=== PATIENT | female | born 1955 | race Caucasian/White ===

== ENCOUNTER 2018-07-13 10:02 | Inpatient (IN) ==
[2018-07-13] MEDS ORDERED: TYLENOL PO PRN (10:49)
[2018-07-13 11:23] LABS: HEMATOCRIT 40.4 % (37.0-47.0); HEMOGLOBIN 13.7 g/dL (12.0-16.0); MCH 30.4 PG (27-31); MCHC 33.9 g/dL (33-37); MCV 89.8 FL (81-99); MPV 12.5 FL (7.4-10.4); RBC 4.5 XMIL (4.2-5.4); RDW 13.1 % (11.5-14.5); WBC 7.27 X1000 (4.8-10.8)
[2018-07-13] MEDS ORDERED: DILAUDID IV PRN (11:24)
--- NOTE | 2018-07-13 11:27 | Diag Imaging Result Doc PS360 ---
CHEST-2 VIEWS - 07/13/2018 INDICATION: r/o pna COMPARISON: 10/27/2013 FINDINGS: The lungs are normally expanded and clear. Heart size and mediastinal contours are normal. No pneumothorax or pleural effusion. IMPRESSION: Negative exam. Electronically signed by Jeremiah Brown 07/13/2018 11:25 AM
[2018-07-13 11:29] LABS: AGAP 10; ALB/GLOB RATIO 1.2; ALBUMIN 4.1 g/dL (3.5-5.0); ALKALINE PHOSPHATASE 103 U/L (32-104); AMYLASE 1462 U/L (20-200); BUN 16 mg/dL (8-22); CALCIUM 8.6 mg/dL (8.8-10.2); CHLORIDE 105 mmol/L (98-107); COSMO 279; CREATININE 0.8 mg/dL (0.5-0.9); ESTIMATED GFR > 60; GLUCOSE 109 mg/dL (70-104); GOT 112 U/L (10-30); GPT 115 U/L (10-36); POTASSIUM 3.7 mmol/L (3.5-5.1); SODIUM 139 mmol/L (136-145); TCO2 24 mmol/L (25-35); TOTAL BILIRUBIN 0.57 mg/dL (0.20-1.00); TOTAL PROTEIN 7.6 g/dL (6.3-8.3)
--- NOTE | 2018-07-13 11:29 | Diag Imaging Result Doc PS360 ---
ABDOMEN FLAT/UPRIGHT - 07/13/2018 INDICATION: abd pain COMPARISON: 03/28/2013 FINDINGS: There is a nonobstructive bowel gas pattern. No free air or abdominal calcifications. There are stable cholecystectomy clips. IMPRESSION: No acute disease. Electronically signed by Jeremiah Brown 07/13/2018 11:26 AM
[2018-07-13] MEDS: D5 1/2 NS 1,000 ML IV SCH ×2 (11:30→17:52)
[2018-07-13] MEDS ORDERED: SODIUM CHLORIDE 0.9% INJ SCH (11:30)
[2018-07-13] MEDS ORDERED: PROTONIX IV SCH (11:30)
[2018-07-13 11:46] LABS: LIPASE 2336 U/L (13-60)
[2018-07-13 11:53] LABS: URINE SOURCE CLEAN CATCH
[2018-07-13] MEDS: DILAUDID IV PRN ×4 (11:53→20:54)
[2018-07-13] MEDS: SODIUM CHLORIDE 0.9% INJ PRN (11:53)
[2018-07-13] MEDS: PHENERGAN IV PRN ×4 (11:53→23:54)
[2018-07-13 11:58] LABS: UR EPITHELIAL CELLS <10 /HPF (<10); URINE BACTERIA NEGATIVE /HPF; URINE RBC <10 /HPF (<10); URINE WBC <10 /HPF (<10)
--- NOTE | 2018-07-13 11:58 | EKG Report ---
Test Performed on : 07/13/2018 11:50:56 AM Test Reason : admit/eval rythm Blood Pressure : / mmHG Vent. Rate : 065 BPM Atrial Rate : 065 BPM P-R Int : 170 ms QRS Dur : 084 ms QT Int : 426 ms P-R-T Axes : 025 055 052 degrees QTc Int : 443 ms Normal sinus rhythm. Normal ECG No previous ECGs available Confirmed by Willian ARANDA, John Valencia ([id number]) on 07/18/2018 12:40:42 PM
[2018-07-13 11:59] LABS: BILIRUBIN URINE NEGATIVE (NEGATIVE); BLOOD URINE TRACE (NEGATIVE); COLOR YELLOW; GLUCOSE URINE NEGATIVE (NEGATIVE); KETONE URINE 20 mg/dL (NEGATIVE); LEUKOCYTES URINE NEGATIVE (NEGATIVE); NITRITE URINE NEGATIVE (NEGATIVE); PH URINE 5.5; PROTEIN URINE NEGATIVE (NEGATIVE); SP GRAVITY URINE 1.002; TURBIDITY URINE CLEAR (CLEAR); UROBILINOGEN URINE NORMAL (NORMAL)
[2018-07-13 12:11] LABS: MAGNESIUM 1.7 mg/dL (1.5-2.7); PHOSPHORUS 2.8 mg/dL (2.7-4.5)
[2018-07-13] MEDS: SODIUM CHLORIDE 0.9% INJ SCH (12:26)
[2018-07-13] MEDS: PEPCID IV SCH (12:26)
[2018-07-13 12:28] LABS: HEMOGLOBIN A1C 5.7 % (4.8-6.0)
[2018-07-13 12:32] LABS: FREE T4 1.28 ng/dL (0.93-1.70); TSH 0.6 uIUmL (0.27-4.20)
[2018-07-13 12:39] LABS: INR 0.97; PROTIME 13.7 Seconds (11.0-16.0)
[2018-07-13 12:40] LABS: PTT 28.2 Seconds (22.3-41.8)
[2018-07-13] MEDS: HUMULIN R SUBQ SCH ×2 (16:49→20:05)
[2018-07-13] MEDS: ZOFRAN IV PRN (17:46)
--- NOTE | 2018-07-13 18:06 | HISTORY AND PHYSICAL ---
This is a patient of Dr. Gt Nicholas. Followed by Dr. Bonilla. HISTORY OF PRESENT ILLNESS: Presented with severe epigastric pain. She has had a history of recurrent pancreatitis. This is a 63-year-old female with a history of recurrent pancreatitis, fatty liver disease, presented to the emergency room once again, sent over by Dr. Bonilla with severe epigastric pain that started yesterday evening, persistently nauseated. PAST MEDICAL HISTORY: Recurrent pancreatitis. Apparently, she has had workup before and in fact has had a stent placed for a couple months. PAST SURGICAL HISTORY: 1. Hysterectomy. 2. Cholecystectomy. 3. ERCP, sphincterotomy in November 2013. 4. Right knee surgery. FAMILY HISTORY: Noncontributory. No significant family history reported. SOCIAL HISTORY: The patient is . Nonsmoker. Denies any alcohol use. 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 HOME MEDICATIONS: I think were Protonix 40 mg a day. ALLERGIES: Morphine and cefprozil. REVIEW OF SYSTEMS: General: No weight gain or loss. No fever or chills. HEENT: Unremarkable. Respiratory: No increased work of breathing or dyspnea. Cardiovascular: No chest pain or tachy palpitation. GI and : Unremarkable except for recurrent epigastric pain and pancreatitis. Endocrinologic/Hematologic: No significant history. PHYSICAL EXAMINATION: VITAL SIGNS: Temperature 98.1 degrees, pulse 62, respirations 12, blood pressure 108/59. Weight 172 pounds. Height 5 feet 2 inches. HEENT: Pupils are equal and round. Oral and nasal mucosa unremarkable. No lesions. Conjunctivae pink. Sclerae clear. LUNGS: Clear in all lung wilkins. CARDIOVASCULAR: Regular rhythm and rate without murmur or S3. ABDOMEN: Tender in the epigastric area. No organomegaly appreciated. SKIN: Warm and dry. No pedal edema. NECK: Supple. No cervical adenopathy. LABORATORY DATA: White count 7,270, hematocrit 40, platelet count is 187,000. Sodium 139, potassium 3.7, chloride 105, BUN 16, creatinine 0.8, blood sugar 109. Hemoglobin A1c is 5.7. Phosphorus is 2.8. AST is 112, ALT is 115, alkaline phosphatase was 103, albumin 4.1. ProTime is 13.7, INR 0.97. Urinalysis unremarkable. Abdominal x-ray, no acute disease. Chest x-ray, negative exam. ASSESSMENT AND PLAN: Acute pancreatitis, recurrent pancreatitis in the face of underlying fatty liver. We are going to hold her NPO, give her some fluids, and give her some pain control. Dr. Bonilla is following. She is on Pepcid 20 mg IV q.12, getting Dilaudid 0.5 mg q.3 hours p.r.n. and I think she gets actually 1 mg q.3 hours p.r.n. if she needs it, Phenergan for nausea running, IV fluids with D5 half normal saline at 150 mL an hour. cc: Aroldo Alatorre MD
[2018-07-14] MEDS: PEPCID IV SCH ×2 (00:02→11:23)
[2018-07-14] MEDS: D5 1/2 NS 1,000 ML IV SCH ×4 (00:33→18:49)
[2018-07-14] MEDS: PHENERGAN IV PRN ×5 (03:37→20:55)
[2018-07-14] MEDS: DILAUDID IV PRN ×6 (03:41→20:55)
--- NOTE | 2018-07-14 04:36 | GASTROENTEROLOGY PROGRESS NOTE ---
DATE: 07/13/2018 SUBJECTIVE: The patient was seen in the office this morning with abdominal pain and nausea. She was very tender in the epigastric area. She has history of recurrent pancreatitis. I think she had pancreatitis and she was transferred to the hospital to be admitted. Since admission, she has had her labs done, which indeed showed elevated amylase and lipase at 1,462 and 2336, respectively. Her transaminases are elevated, also, AST was 112, and ALT was 115. Since admission, she has received pain medicine and has been getting hydration and she feels a little better. She denies any nausea, vomiting. She is on ice chips and sips now. OBJECTIVE: Vital signs: Temperature 98.1 degrees, pulse 62, breathing at 12, blood pressure 108/59. Abdomen: Remains tender in the epigastric area. IMPRESSION: Acute pancreatitis (recurrent). Etiology at this point not known. Had she not had her cholecystectomy she would be the right person to have gallstone pancreatitis, but she has had cholecystectomy and she has had ERCP and sphincterotomy also. As far as etiology of her pancreatitis, again, it is elusive. She was scheduled to see Dr. Recinos at [facility], but she has not been able to do that. PLAN: The plan would be to continue symptomatic treatment for pain, nausea, and continue to follow the labs and replenish electrolytes if it goes down, and keep her comfortable. Once she is stabilized, like she always does, in a day or 2 she can be discharged to be followed up at the office. She will need endoscopic ultrasound and follow up with Dr. Recinos for further evaluation and treatment. I have explained the findings and plan to the patient. She understands and agrees. cc: Clifton Bonilla MD
[2018-07-14] MEDS: BENADRYL IV PRN ×2 (05:12→11:24)
[2018-07-14] MEDS: ZOFRAN IV PRN (05:16)
[2018-07-14 07:51] LABS: BASO# 0.02 X1000 (0.0-0.2); BASO% 0.3 % (0.0-0.8); EOS# 0.08 X1000 (0.0-0.7); EOS% 1.1 % (0.0-10.0); HEMATOCRIT 38.1 % (37.0-47.0); HEMOGLOBIN 12.4 g/dL (12.0-16.0); LYMPH# 1.26 X1000 (1.2-3.4); LYMPH% 17.4 % (20.5-51.1); MCHC 32.5 g/dL (33-37); MCV 92.3 FL (81-99); MONO# 0.49 X1000 (0.11-0.59); MONO% 6.8 % (1.7-9.3); MPV 12.6 FL (7.4-10.4); NEUT% 74.4 % (42.2-75.2); PLT 186 X1000 (130-400); RBC 4.13 XMIL (4.2-5.4); RDW 13.1 % (11.5-14.5); WBC 7.25 X1000 (4.8-10.8)
[2018-07-14 07:55] LABS: INR 0.98; PROTIME 13.7 Seconds (11.0-16.0); PTT 29.7 Seconds (22.3-41.8)
[2018-07-14 08:24] LABS: AGAP 9; BUN 10 mg/dL (8-22); CHLORIDE 100 mmol/L (98-107); COSMO 269; CREATININE 0.7 mg/dL (0.5-0.9); ESTIMATED GFR > 60; GLUCOSE 137 mg/dL (70-104); POTASSIUM 3.6 mmol/L (3.5-5.1); SODIUM 134 mmol/L (136-145); TCO2 25 mmol/L (25-35)
[2018-07-14 08:25] LABS: ALB/GLOB RATIO 1.3; ALBUMIN 3.7 g/dL (3.5-5.0); ALKALINE PHOSPHATASE 102 U/L (32-104); CALCIUM 8.1 mg/dL (8.8-10.2); GOT 153 U/L (10-30); GPT 189 U/L (10-36); TOTAL BILIRUBIN 0.53 mg/dL (0.20-1.00); TOTAL PROTEIN 6.5 g/dL (6.3-8.3)
[2018-07-14] MEDS: SODIUM CHLORIDE 0.9% INJ PRN ×3 (08:46→16:54)
[2018-07-14] MEDS: HUMULIN R SUBQ SCH ×4 (08:55→21:01)
[2018-07-14 10:58] LABS: AMYLASE 1344 U/L (20-200)
[2018-07-14 11:08] LABS: LIPASE 1637 U/L (13-60)
[2018-07-14] MEDS: SODIUM CHLORIDE 0.9% INJ SCH (11:24)
--- NOTE | 2018-07-14 14:53 | PROGRESS NOTE ---
DATE: 07/14/2018 SUBJECTIVE: Ms. Pulido is maybe a little better, still in a good deal of pain, left upper quadrant and epigastric pain. No nausea at the present time. She is still n.p.o. OBJECTIVE: Vital Signs: Temperature 97.8 degrees, pulse 62, respirations 12, and blood pressure 129/66. Eyes: Pupils are equal and round. Lungs: Clear in all lung wilkins. Cardiovascular exam: Regular rhythm and rate without murmur or S3. Abdomen: Soft. Skin: Warm and dry. : Urine output 3600 mL. Blood sugar 111,133 and 155. ASSESSMENT AND PLAN: Acute pancreatitis. Recurrent pancreatitis in face of underlying fatty liver. Continue to hold her on nothing by mouth. Dr. Bonilla is following. Continue liquids and pain control. cc: Aroldo Alatorre MD
--- NOTE | 2018-07-14 17:09 | GASTROENTEROLOGY PROGRESS NOTE ---
DATE: 07/14/2018 SUBJECTIVE: Patient was drowsy. She has recently received pain medication. She states her abdominal pain has improved slightly. OBJECTIVE: Vital Signs: Temperature 97.5 degrees, pulse 62, blood pressure 129/66. General: Patient is drowsy in no acute distress. Abdomen: Soft, but tender with palpation. LABORATORY: Hematology 7.25 hemoglobin 12.4, hematocrit 38.1, MCV 92.3 platelet 186,000. Chemistry: Sodium 134, potassium 3.6, chloride 100, CO2 25, BUN 10, creatinine 0.7, glucose 137, total bilirubin 0.53. AST 153 ALT 189 alkaline phosphatase 102, amylase 1344, lipase 1637. ASSESSMENT AND PLAN: 1. Acute pancreatitis. 2. History of chronic pancreatitis. She has history of cholecystectomy. She has had endoscopic retrograde cholangiopancreatography and sphincterotomy. We had initially referred her at [facility] to Dr. Recinos but he is not accepting patients. We will refer the patient to Dr. Dunham in [place] for evaluation for possible endoscopic ultrasound and further evaluation due to chronic pancreatitis. Patient was also seen today by Dr. Bonilla. Dictated by ELDA Che for Clifton Bonilla MD cc: ELDA Zimmerman MD
[2018-07-15] MEDS: PHENERGAN IV PRN ×6 (00:21→22:08)
[2018-07-15] MEDS: DILAUDID IV PRN ×6 (00:21→22:08)
[2018-07-15] MEDS: PEPCID IV SCH ×2 (00:21→14:45)
[2018-07-15] MEDS: D5 1/2 NS 1,000 ML IV SCH ×4 (00:28→21:00)
[2018-07-15] MEDS: BENADRYL IV PRN ×2 (04:10→21:00)
[2018-07-15] MEDS: HUMULIN R SUBQ SCH ×4 (06:22→21:03)
[2018-07-15] MEDS: SODIUM CHLORIDE 0.9% INJ PRN ×3 (08:21→18:12)
--- NOTE | 2018-07-15 10:57 | PROGRESS NOTE ---
DATE: 07/15/2018 SUBJECTIVE: She maybe feels a little bit better, a little less pain. LABORATORY DATA: From this morning, amylase was 13,444, lipase 1637. So, we will check those again in the morning. Transaminases slightly elevated. AST 153, ALT was alk phos 189. I think we will try full liquids but she is still in pretty good pain. It is mainly right upper quadrant, epigastrium that is hurting. OBJECTIVE: Vital signs: Temperature 98.3 degrees, pulse 64, respirations 20, blood pressure 125/70. HEENT: Pupils are equal round. Lungs: Clear in all lung wilkins. Cardiovascular: Regular rhythm and rate without murmur or S3. Abdomen: Soft. Skin: Warm and dry. ASSESSMENT AND PLAN: I will advance her to full liquid. We will check liver functions and amylase and lipase again in the morning. cc: Aroldo Alatorre MD MTDD
[2018-07-15 14:28] LABS: AGAP 11; BUN 5 mg/dL (8-22); CALCIUM 8.6 mg/dL (8.8-10.2); CHLORIDE 104 mmol/L (98-107); COSMO 279; CREATININE 0.8 mg/dL (0.5-0.9); ESTIMATED GFR > 60; GLUCOSE 112 mg/dL (70-104); LIPASE 273 U/L (13-60); POTASSIUM 3.6 mmol/L (3.5-5.1); SODIUM 141 mmol/L (136-145); TCO2 26 mmol/L (25-35)
[2018-07-15] MEDS: SODIUM CHLORIDE 0.9% INJ SCH (14:45)
[2018-07-16] MEDS: D5 1/2 NS 1,000 ML IV SCH ×2 (03:45→10:43)
[2018-07-16] MEDS: PEPCID IV SCH (06:13)
[2018-07-16] MEDS: HUMULIN R SUBQ SCH ×2 (06:29→11:51)
[2018-07-16 07:27] LABS: AGAP 8; ALB/GLOB RATIO 1.2; ALBUMIN 3.8 g/dL (3.5-5.0); ALKALINE PHOSPHATASE 105 U/L (32-104); AMYLASE 114 U/L (20-200); BUN 4 mg/dL (8-22); CALCIUM 8.9 mg/dL (8.8-10.2); CHLORIDE 106 mmol/L (98-107); COSMO 280; CREATININE 0.7 mg/dL (0.5-0.9); ESTIMATED GFR > 60; GLUCOSE 139 mg/dL (70-104); GOT 76 U/L (10-30); GPT 130 U/L (10-36); LIPASE 164 U/L (13-60); POTASSIUM 4.1 mmol/L (3.5-5.1); SODIUM 141 mmol/L (136-145); TCO2 27 mmol/L (25-35); TOTAL BILIRUBIN 0.57 mg/dL (0.20-1.00); TOTAL PROTEIN 6.9 g/dL (6.3-8.3)
[2018-07-16 12:08] VITALS: BP 135/62
--- NOTE | 2018-07-16 14:49 | DISCHARGE SUMMARY ---
ADMISSION DATE: 07/13/2018 DISCHARGE DATE: 07/16/2018 PRIMARY CARE PHYSICIAN: Dr. Gt Nicholas. HISTORY: She presented with epigastric, right upper quadrant pain, history of recurrent pancreatitis, and history of underlying fatty liver disease, followed by Dr. Jones, in the process of getting her checked. She has had a previous pancreatic stents placed. But came in with acute pancreatitis again, was left NPO. Her amylase and lipase came down nicely. PAST MEDICAL HISTORY: 1. Hysterectomy. 2. Cholecystectomy. 3. ERCP, sphincterotomy in November 2013. 4. Right knee surgery. HOSPITAL COURSE: Her amylase and lipase came down nicely. Amylase down to 114, lipase 164. So, she is anxious to go home. We will let her go home. Follow up with Dr. Bonilla and Dr. Nicholas. Her home medications were Protonix 40 mg daily. I do not see any other medicine she is on. cc: Aroldo Alatorre MD
== END 2018-07-16 16:32 | disposition home or self-care (01) | DRG 440 ==
LOC: DIRADM 10:02 → SUATTDRO 10:02 → 4N 10:05 → 3N 14:37
PROVIDERS: ATTEND Emergency Medicine
CPT/HCPCS: 71020; 71046; 74019; 74020; 80048; 80053; 80061; 81001; 82150; 82550; 82607; 82746; 82948; 83036; 83605; 83690; 83721; 83735; 84100; 84439; 84443; 84484; 85025; 85027; 85610; 85730; 87040; 93005; 93010; A9270; J1170; J1200; J2405; J2550; S0028; XXXXX